=== PATIENT | male | born 1995 | race Caucasian/White ===

== ENCOUNTER 2021-05-21 18:59 | Emergency (ER) | payer SELFPAY ==
[2021-05-21 19:06] VITALS: BP 153/117; PULSE 84; RESP 18; TEMP 36.6; O2SAT 99
--- NOTE | 2021-05-21 19:32 | PC.NURSE ---
Pt presents to ED with complaints of dental pain on left upper side. Pt states he was recently prescribed abt to take TID with no relief as of yet. Pt took tylenol to treat pain with some relief and adds that tooth is cracked. Pt pacing room due to pain but is alert and oriented x4 and in no obvious distress. Pt advised to press call button for assistance.
--- NOTE | 2021-05-21 19:36 | PC.NURSE ---
EDMD to bedside.
--- NOTE | 2021-05-21 19:45 | ED.DENTAL ---
HPI - Dental/Oral General Chief complaint: Dental/Oral Stated complaint: toothache Time Seen by Provider: 05/21/21 19:03 Source: patient and RN notes reviewed Mode of arrival: ambulatory Limitations: no limitations History of Present Illness HPI Narrative: Patient is a 25-year-old male who presents with recurrent dental pain that has been present now for the last day history of decay has been taking Tylenol with minimal improvement denies any fever vomiting URI symptoms notes that he has to dentist that he is currently following with presents in no distress does not appear uncomfortable Related Data Home Medications Medication Instructions Recorded Confirmed clindamycin HCl TID 05/21/21 Allergies Allergy/AdvReac Type Severity Reaction Status Date / Time Penicillins Allergy Unknown Verified 05/21/21 19:14 Review of Systems Review of Systems: All systems reviewed & are unremarkable except as noted in HPI and below PMFSH Social History Social History (Updated 05/21/21 @ 19:47 by Jerson Marks PA-C) Smoking status: Never smoker Exam Narrative: Exam Narrative: GENERAL: Well-appearing, obese, and in no acute distress. HEAD: Normocephalic, atraumatic. EYES: PERRLA and EOMI. ENT: Nares clear, no rhinorrhea or epistaxis. Mucous membranes moist. Oropharynx without tonsillar hypertrophy exudate or other lesions. Dental caries in the posterior oropharynx primarily involving the molars left lower molar with tenderness and decay there are no space-occupying lesions in the oropharynx the uvula is midline no trismus or drooling NECK: Supple. No adenopathy or masses. CHEST: Clear to auscultation. No respiratory distress. No wheezes rales or rhonchi HEART: Regular rate and rhythm. No murmur heard. EXTREMITIES: Normal range of motion. No edema. SKIN: Warm, dry, no rash. NEURO: No focal deficits. Alert and oriented x3. Cranial nerves II through XII grossly intact PSYCH: Normal mood and affect. Course Course Emergency Course: Patient presented with dental pain with chronic history of decay advised to follow with his dentist will be treated provided with reasons to return Vital Signs Vital signs: Vital Signs Temperature 97.9 F 05/21/21 19:06 Pulse Rate 84 05/21/21 19:06 Respiratory Rate 18 05/21/21 19:06 Blood Pressure 153/117 H 06/27/21 19:06 Pulse Oximetry 99 05/21/21 19:06 Temperature 97.9 F 05/21/21 19:06 Pulse Rate 84 05/21/21 19:06 Respiratory Rate 18 05/21/21 19:06 Blood Pressure 153/117 H 05/21/21 19:06 Pulse Oximetry 99 05/21/21 19:06 MDM - Dental/Oral MDM Narrative Medical decision making narrative: Paitents pain and complaint coupled with physical findings are consistant with dentalgia. There are no focal signs of space occupying lesions that are compromising to the ariway. The floor of the mouth is soft with no signs of Ludwigs Angina. Patient is without trismus or drooling and able to swallow secreations. Patient is felt appropriate for discharge home with dental follow up. Discharge Plan Discharge Clinical Impression: Dental abscess Patient Disposition: Home, Self-Care Condition: Stable Instructions: Antibiotic Form, Dental Abscess (ED) Additional Instructions: Follow-up with dentistry in the next 7 days. Go to ER for shortness of breath, difficulty breathing, chest pain, fever/chills, weakness, nauseau/vomitting, unable to swallow or open the mouth etc. or any other concerns. Take any prescribed medications as directed. If you do not have a drug allergy to tylenol or motrin and can tolerate it then take tylenol or motrin as needed for discomfort/pain. Prescriptions: New ibuprofen [Motrin IB] 200 mg capsule 600 mg PO Q6H PRN (Reason: fever or pain) Qty: 7 RF: 0 chlorhexidine gluconate [Peridex] 0.12 % mouthwash 15 ml mucous membrane BID Qty: 1500 RF: 0 clindamycin HCl 150 mg capsule 450 mg PO TID 10 Days Qty: 90 RF: 0
[2021-05-21 20:27] VITALS: BP 176/116; PULSE 86; RESP 18; TEMP 36.9; O2SAT 99
--- NOTE | 2021-05-21 20:27 | PC.NURSE ---
Pt to be dc home with dad. BP noted to be elevated and pt educated on the need to follow up with pcp in regards to BP and voices his understanding.
[2021-05-21 20:29] VITALS: BP 176/116; PULSE 86; RESP 18; TEMP 36.9; O2SAT 99
== END 2021-05-21 20:32 | disposition home or self-care (01) ==
PROVIDERS: Emergency Provider Emergency Medicine
DX: K04.7 Periapical abscess without sinus (principal)
CPT/HCPCS: 99283